=== PATIENT | female | born 1950 | race Caucasian/White ===

== ENCOUNTER → 2017-03-29 | Day surgery (SDC) | payer OTHER ==
[~2017-03-29] MED LIST: BUPIVACAINE/EPINEPHRINE 0.25% 50 ML VIAL ONE; DEXAMETHASONE SOD PHOS 4 MG/ML VIAL IV ONE; LACTATED RINGER'S 1000 ML INJ 1,000 ML ONE; LIDOCAINE HCL 1% PF 5 ML AMPULE OTHER ONE; MIDAZOLAM HCL 2 MG/2 ML VIAL ONE; ONDANSETRON HCL 4 MG/2 ML VIAL IV PUSH ONE; PROPOFOL 200 MG/20 ML AMP IV ONE; ceFAZolin INJ 1,000 MG VIAL ONE
--- NOTE | 2017-03-29 12:37 | TN ---
cc: ZENON PAGAN M.D. DATE OF SURGERY 03/29/2017 PREOPERATIVE DIAGNOSIS Left knee suspected medial and lateral meniscal tears. POSTOPERATIVE DIAGNOSES 1. Left knee large displaced bucket-handle tear lateral meniscus, macerated. 2. 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 3. Chondromalacia lateral tibial plateau Grade II-B. PROCEDURE PERFORMED 1. Left knee arthroscopy with a subtotal lateral meniscectomy. 2. Left knee arthroscopic chondroplasty lateral femoral condyle and lateral tibial plateau. SURGEON MD Tevin ANESTHESIA General via laryngeal mask augmented by local infiltration. BLOOD LOSS Minimal. FLUID REPLACEMENT 350 cc of crystalloid. SPECIMEN No specimens were sent. COUNTS All counts were correct. COMPLICATIONS There were no intraoperative complications. TOURNIQUET TIME 36 minutes at 300 mmHg. INDICATIONS FOR PROCEDURE Miss Ordoñez is a 66-year-old woman who has had a two-year history of left lateral knee pain with episodic locking and giving way. She has had little relief that has been lasting with conservative management and the frequency of her sensation of instability and locking of her knee has increased progressively over this last 2 years. We attempted to get an MRI of her knee to see whether or not there was evidence of significant meniscal pathology as her radiographs were relatively normal and unfortunately, because of the fact that she had a previous cerebral coil and a cerebral clamp, they elected not to move forward with an MRI of the knee. As a result, due to failure of conservative management, she is being taken to the operating room for left knee arthroscopy for debridement. She was aware of the risks, benefits, potential complications, limitation of the procedure and a full written, informed consent was obtained. DESCRIPTION OF PROCEDURE After the patient was properly identified in the holding area, she correctly marked her left knee and I had initialed it as well. She is given 1 gram of intravenous Ancef as prophylactic antibiotic and was taken into the operating suite. She had a well-padded tourniquet applied high on her left thigh and then she was prepped with alcohol and Hibiclens and draped in the normal standard fashion including the use of an impervious stockinette from the foot all the way up to the upper tibia. At this time appropriate time-out was performed. We confirmed the left leg was the appropriate site. The team was in agreement and the case was now begun. The left leg was exsanguinated with an Osito wrap and the tourniquet was raised to 300 mmHg. Standard anteromedial and anterolateral portal portals were established under direct vision. A small effusion was evacuated. Inflow was initiated and a survey of the joint was as follows - The suprapatellar pouch showed minimal synovitis or evidence of any significant chondromalacia. There was no evidence of any significant mal-tracking of the patella. The medial gutter was now explored. There was no synovitis or loose bodies seen. The medial compartment was now entered. I did not appreciate the presence of any significant medial meniscus tear or significant chondromalacia of the medial femoral condyle or the medial tibial plateau. The intercondylar notch was now explored. There was some slight fraying of the ACL more laterally but no full-thickness rupture was appreciated and it tensioned appropriately with anterior drawer. I had difficulty visualizing into the lateral compartment because there was a large displaced fragment of lateral meniscus. I went ahead and made every attempt to reduce the meniscus. I could reduce it for just a few seconds at a time but then it would re-sublux immediately back anteriorly. It was quite macerated and there was a tear in a white-white junction. I did not feel as though it represented a repairable lesion in a 66-year-old. I went ahead and used meniscal scissors and a straight meniscal punch in order to excise the large displaced fragment of meniscus and then essentially a near sub-total lateral meniscectomy was performed. In addition to a large bucket-handle tear that was based off of the posterior two-thirds of the meniscus. There was also bucket-handle extension into the anterior portion of meniscus all the way to the anterior horn. I went ahead and debrided this secondary to the posterior debridement. At this time the meniscal remnant was stable and would not sublux into the joint. There was a fair amount of circumferential tissue that did remain where there was still some functioning of hoop fibers. The chondral tissue on the lateral femoral condyle and the lateral tibial plateau showed in general, Grade II-B changes. There were some areas of unstable tissue that were debrided with an oscillating shaver as it clearly would benefit from debridement of some of this unstable tissue as it was likely to become loose bodies. After this was performed the knee was taken through a range of motion and all compartments were explored again including the lateral gutter. No further pathology was identified. I went ahead and explored the suprapatellar pouch one further time. It showed normal tracking of the patella and no high-grade chondromalacia was appreciated. At this time the knee was suctioned, decompressed. I took it through a range of motion one final time. No further pathology was identified. The instruments were removed. The scope was removed. The knee was then suctioned, decompressed. The portals were then closed with 3-0 nylon simple sutures and then 30 cc of 0.25% Marcaine with epinephrine were then infiltrated subcutaneously as well as intraarticularly for pain relief. Appropriate postoperative instructions had been given. ScottI. Tevin BO Electronically Signed MD MARCELINO Gurrola/ALEXUS /12:11 PM /12:21 PM RAJNI
== END | disposition home or self-care (01) ==
LOC: ESDC 09:57
PROVIDERS: ATTEND Orthopaedic Surgery Sports Medicine
DX: S83.252A Bucket-handle tear of lateral meniscus, current injury, left knee, initial encounter (principal); M94.262 Chondromalacia, left knee
CPT/HCPCS: 01400; 29881; J0690; J1100; J2250; J2405; J3010; J7120